=== PATIENT | male | born 1950 | race Caucasian/White ===

== ENCOUNTER → 2022-10-11 | Outpatient (CLI) | payer OTHER, SELFPAY ==
--- NOTE | 2022-10-11 15:43 | MRI_ITS ---
STUDY: MRI LUMBAR SPINE WITH AND WITHOUT CONTRAST REASON FOR EXAM: Male, 72 years old. gait d/o; LBP; RLE radiculopathy; Hx lumbar surger TECHNIQUE: Standardized fat and water weighted pulse sequences were obtained in the sagittal and axial planes. IV 15ml clariscan was administered for the contrast portion of the examination. COMPARISON: None FINDINGS: T12-L1: Normal endplates. Normal disc height, hydration and morphology. Normal bilateral facet joints. Normal central canal and bilateral lateral recesses. Normal bilateral intervertebral neural foramina. Normal lumbar lordosis. There is no substantial scoliosis. Normal conus medullaris that terminates at T12-L1 L1-2: Normal endplates. Normal disc height, desiccation and normal morphology. Normal bilateral facet joints. Normal central canal and bilateral lateral recesses. Normal bilateral intervertebral neural foramina. L2-3: Normal endplates. Normal disc height, desiccation and normal morphology. Normal bilateral facet joints. Normal central canal and bilateral lateral recesses. Normal bilateral intervertebral neural foramina. L3-4: Normal endplates. Normal disc height, desiccation and minimal bulge.. Mild facet arthropathy and thickening of ligamenta flava. Normal central canal and bilateral lateral recesses. Moderate bilateral neural foraminal stenosis. L4-5: Normal endplates. Normal disc height, desiccation and minimal annular bulge.. Facet arthropathy.. Normal central canal and bilateral lateral recesses. Moderate bilateral neural foraminal stenosis exaggerated by shortened pedicles. L5-S1: Status post bilateral laminotomy Grade 1 retrolisthesis Normal endplates. Normal disc height, desiccation and minor bulging disc osteophyte complex. Bilateral facet arthropathy.. Normal central canal and bilateral lateral recesses. Moderate bilateral neural foraminal stenosis. Normal visualized sacral ala. Normal visualized paraspinous soft tissue structures. MRI/Spine Lumbar W/WO Contrast IMPRESSION: No evidence for acute fracture or other significant bony pathology.. Spinal stenosis at L3-4 L4-5 and L5-S1 secondary to disc disease and bony encroachment Findings as above Electronically Signed: Mango eCron MD at 18:50 EDT ,
--- NOTE | 2022-10-11 15:43 | MRI_ITS ---
STUDY: MRI CERVICAL SPINE WITHOUT CONTRAST REASON FOR EXAM: Male, 72 years old. gait imbalance; cervcial spinal stenosis TECHNIQUE: Standardized fat and water weighted pulse sequences were obtained in the sagittal and axial planes. COMPARISON: None FINDINGS: Normal foramen magnum and brainstem-cervical cord junction. Normal craniovertebral junction. Normal anterior atlantoaxial articulation. Normal odontoid process. Normal cervical lordosis. Normal vertebral bodies and posterior osseous elements. C2-3: Normal endplates. Normal disc height, signal and morphology. Normal central canal and intervertebral neural foramina. C3-4: Normal endplates. Normal disc height, signal and morphology. Normal central canal and intervertebral neural foramina. C4-5: Mild anterior endplate spurring.. Normal disc height, signal and tiny central disc protrusion. Normal central canal and intervertebral neural foramina. C5-6: Narrowed disc space and minor endplate spurring with a small central osteophyte protrusion mildly narrowing the central canal impinging upon the ventral surface of the cord. Moderate bilateral neural foraminal stenosis secondary to bony hypertrophy C6-7: Narrowed disc space and minor bulging disc osteophyte complex. Normal central canal. Moderate bilateral neural foraminal encroachment secondary to bony hypertrophy C7-T1: Normal endplates. Normal disc height, signal and morphology. Normal central canal and intervertebral neural foramina. Normal cervical cord. Normal visualized soft tissue structures. MRI/Spine Cervical (Routine) IMPRESSION: No evidence for acute fracture or significant bony pathology.. Mild spondylosis most pronounced at C5-6 and C6-7 Findings as above. Electronically Signed: Mango Ceron MD at 18:44 EDT ,
[2022-10-11 16:35] LABS: EGFR FINGERSTICK > 60.0000 mL/min (>60)
== END | disposition home or self-care (01) ==
LOC: MRI 15:43
PROVIDERS: Referring Provider Psychiatry & Neurology Neurology; Visit Provider Psychiatry & Neurology Neurology
DX: M48.02 Spinal stenosis, cervical region (principal); R26.9 Unspecified abnormalities of gait and mobility; M54.50 Low back pain, unspecified; M54.16 Radiculopathy, lumbar region
CPT/HCPCS: 72141; 72158; A9575